=== PATIENT | female | born 1940 | race African-American/Black ===

== ENCOUNTER 2023-03-22 10:52 | Observation (INO) | payer MEDICARE, OTHER ==
[2023-03-22 12:19] LABS: BASO % 0.4 % (0-2.0); EOS % 1.3 % (0-4.5); HEMATOCRIT 39.6 % (32.4-45.2); LYMPH % 19.1 % (8-40); MCH 26.6 pg (25.7-33.7); MCHC 32.8 g/dl (32.0-36.0); MEAN CELL VOLUME 81.1 fl (80-96); MEAN PLT VOLUME 8.4 fl (7.5-11.1); MONO % 7.3 % (3.8-10.2); NEUT % 71.9 % (42.8-82.8); PLATELET COUNT 158 10^3/uL (134-434); RBC 4.88 M/mm3 (3.60-5.2); RDW 14.6 % (11.6-15.6); WHITE BLOOD COUNT 5.5 K/mm3 (4.0-10.0)
[2023-03-22 12:41] LABS: POTASSIUM 4.6 mmol/L (3.5-5.1)
[2023-03-22 12:43] LABS: BLOOD UREA NITROGEN 13.4 mg/dL (7-18); CALCIUM 10.2 mg/dL (8.5-10.1); MAGNESIUM 2.2 mg/dL (1.8-2.4)
[2023-03-22 12:44] LABS: ALBUMIN 3.7 g/dl (3.4-5.0)
[2023-03-22 12:48] LABS: BILIRUBIN,TOTAL 0.7 mg/dL (0.2-1); TOT PROT 7.3 g/dl (6.4-8.2)
[2023-03-22 14:46] LABS: INR 1.12 (0.83-1.09)
[2023-03-22 14:49] LABS: ACTIVATED PTT 26.2 SECONDS (25.2-36.5)
[2023-03-23] MEDS ORDERED: ACETAMINOPHEN 325 MG TABLET (FP) ONE (10:37)
[2023-03-23] MEDS: ACETAMINOPHEN 325 MG TABLET (FP) PO PRN (10:41)
[2023-03-23 17:19] VITALS: BMI 28.3
[2023-03-24] MEDS: ACETAMINOPHEN 325 MG TABLET (FP) PO PRN (01:00)
[2023-03-24] MEDS: POLYETHYLENE GLYCOL (HEALTHYLAX) 3350 17 GM PACKET PO SCH (14:36)
[2023-03-25] MEDS: ACETAMINOPHEN 325 MG TABLET (FP) PO PRN (09:50)
[2023-03-25] MEDS: POLYETHYLENE GLYCOL (HEALTHYLAX) 3350 17 GM PACKET PO SCH (09:51)
[2023-03-25] MEDS ORDERED: CHOLECALCIFEROL (VIT D3) 1,000 UNIT (25 MCG) TABLET PO SCH (14:00)
[2023-03-25] MEDS ORDERED: CALCIUM 500MG/VIT-D 200 UNITS COMBO TABLET (FP) PO SCH (14:00)
[2023-03-25 18:20] VITALS: BP 115/74; PULSE 57; RESP 18; TEMP 97.9
== END 2023-03-25 20:40 ==
LOC: JER 10:52 → UNDOADMOB 14:47 → JERBED 14:47 → OBSVTOIN 14:49 → INTOOBSV 14:49 → JERBED 03-23 13:53 → J4W 03-23 13:56 → JERBED 03-23 13:56 → J4W 03-24 14:17
PROVIDERS: ADMIT Internal Medicine; ATTEND Internal Medicine
DX: S06.37AA Contusion, laceration, and hemorrhage of cerebellum with loss of consciousness status unknown, initial encounter (principal); W18.39XA Other fall on same level, initial encounter; Y93.89 Activity, other specified; Y92.009 Unspecified place in unspecified non-institutional (private) residence as the place of occurrence of the external cause; R26.81 Unsteadiness on feet; M62.81 Muscle weakness (generalized); Z29.8 Encounter for other specified prophylactic measures; Z88.8 Allergy status to other drugs, medicaments and biological substances; M19.90 Unspecified osteoarthritis, unspecified site; Z87.891 Personal history of nicotine dependence
CPT/HCPCS: 0241U-QW; 36415; 70450-TC; 70551-TC; 71045-TC-FY; 72125-TC; 72131-TC; 72141-TC; 72170-TC-FY; 80053; 83735; 84484; 85025; 85610; 85730; 86850; 86900; 86901; 93005; 93010; 97116-GP; 97162-GP; 99285-25; G0378

== ENCOUNTER 2023-07-29 12:55 | Inpatient (IN) | payer OTHER ==
[2023-07-29 15:09] LABS: BASO % 0.2 % (0-2.0); EOS % 0.3 % (0-4.5); HEMATOCRIT 39.6 % (32.4-45.2); HEMOGLOBIN 12.9 GM/dL (10.7-15.3); LYMPH % 9.9 % (8-40); MCH 25.2 pg (25.7-33.7); MCHC 32.6 g/dl (32.0-36.0); MEAN CELL VOLUME 77.2 fl (80-96); MEAN PLT VOLUME 7.2 fl (7.5-11.1); MONO % 9.2 % (3.8-10.2); NEUT % 80.4 % (42.8-82.8); PLATELET COUNT 378 10^3/uL (134-434); RBC 5.13 M/mm3 (3.60-5.2); RDW 14.8 % (11.6-15.6); WHITE BLOOD COUNT 10.2 K/mm3 (4.0-10.0)
[2023-07-29 15:15] LABS: INR 1.21 (0.83-1.09)
[2023-07-29 15:17] LABS: ACTIVATED PTT 25.4 SECONDS (25.2-36.5)
[2023-07-29 15:26] LABS: CHLORIDE 97 mmol/L (98-107); SODIUM 130 mmol/L (136-145)
[2023-07-29 15:29] LABS: BLOOD UREA NITROGEN 79.5 mg/dL (7-18); CO2 25 mmol/L (21-32); GLUCOSE,RANDOM 143 mg/dL (74-106)
[2023-07-29 15:32] LABS: CREATININE 2.2 mg/dL (0.55-1.3); SGOT/AST 59 U/L (15-37); SGPT/ALT 42 U/L (13-61)
[2023-07-29 15:33] LABS: BILIRUBIN,TOTAL 0.4 mg/dL (0.2-1)
[2023-07-29] MEDS ORDERED: SODIUM CHLORIDE 0.9% 500 ML INFUS.BAG IV ONE ×2 (15:33→15:34)
[2023-07-29 15:34] LABS: LACTIC ACID 3.1 mmol/L (0.4-2.0); TOT PROT 9.1 g/dl (6.4-8.2)
[2023-07-29 15:35] LABS: ALK PHOS 123 U/L (45-117)
[2023-07-29] MEDS ORDERED: CEFTRIAXONE 1,000 MG in DEXTROSE 5%-WATER - 50 ML IVPB ONE (15:47)
[2023-07-29 15:51] LABS: ANION GAP 8 mmol/L (4-13); CALCIUM 14.3 mg/dL (8.5-10.1); POTASSIUM 6.2 mmol/L (3.5-5.1)
[2023-07-29] MEDS ORDERED: FUROSEMIDE 40 MG/4 ML INJECTABLE VIAL IVPUSH ONE (15:54)
[2023-07-29] MEDS ORDERED: INSULIN REGULAR HUMAN 100 UNITS/ML *VIAL IVPUSH ONE (15:55)
[2023-07-29] MEDS ORDERED: ALBUTEROL SO4 2.5/IPRATROPIUM 0.5 INH SOL 3 ML VIAL.NEB. NEB ONE ×2 (15:56→16:13)
[2023-07-29] MEDS ORDERED: DEXTROSE 50%-WATER - 25 GM/50 ML VIAL IVPUSH ONE (15:56)
[2023-07-29] MEDS ORDERED: DEXTROSE 50%-WATER 25 GM/50 ML DISP.SYRIN ONE (16:13)
[2023-07-29] MEDS ORDERED: CEFTRIAXONE 1 GM/50 ML BAG ONE (16:13)
[2023-07-29] MEDS ORDERED: FUROSEMIDE 40 MG/4 ML INJECTABLE VIAL ONE (16:13)
[2023-07-29 17:50] LABS: CHLORIDE 96 mmol/L (98-107); POTASSIUM 5.3 mmol/L (3.5-5.1); SODIUM 126 mmol/L (136-145)
[2023-07-29 17:54] LABS: ALBUMIN 2.5 g/dl (3.4-5.0); ANION GAP 7 mmol/L (4-13); BLOOD UREA NITROGEN 76.6 mg/dL (7-18); CO2 23 mmol/L (21-32); GLUCOSE,RANDOM 262 mg/dL (74-106)
[2023-07-29 17:57] LABS: CREATININE 2.2 mg/dL (0.55-1.3); SGOT/AST 48 U/L (15-37); SGPT/ALT 38 U/L (13-61)
[2023-07-29 17:59] LABS: BILIRUBIN,TOTAL 0.4 mg/dL (0.2-1); LACTIC ACID 3.7 mmol/L (0.4-2.0)
[2023-07-29 18:00] LABS: ALK PHOS 111 U/L (45-117); CALCIUM 14.1 mg/dL (8.5-10.1)
[2023-07-29] MEDS ORDERED: SODIUM ZIRCONIUM CYCLOSILICATE (LOKELMA) 5 GM PACKET PO ONE (21:31)
[2023-07-30] MEDS ORDERED: ACETAMINOPHEN 325 MG TABLET (FP) PO PRN (13:50)
[2023-07-30] MEDS ORDERED: SODIUM CHLORIDE 1,000 ML IV SCH (14:00)
[2023-07-30] MEDS: CEFTRIAXONE 1 GM in DEXTROSE 5%-WATER - 50 ML IVPB SCH (14:06)
[2023-07-30] MEDS ORDERED: COLLAGENASE CLOSTRIDIUM HIST. 30 GRAMS TUBE TP SCH (15:00)
[2023-07-30] MEDS: SODIUM CHLORIDE 1,000 ML IV SCH (16:45)
[2023-07-30] MEDS ORDERED: ZOLEDRONIC ACID 4 MG in SODIUM CHLORIDE 100 ML IVPB ONE (17:00)
[2023-07-30 20:04] LABS: BASO % 0.1 % (0-2.0); EOS % 0.3 % (0-4.5); HEMATOCRIT 33.5 % (32.4-45.2); HEMOGLOBIN 10.7 GM/dL (10.7-15.3); LYMPH % 7.8 % (8-40); MCH 24.9 pg (25.7-33.7); MCHC 32.1 g/dl (32.0-36.0); MEAN CELL VOLUME 77.6 fl (80-96); MEAN PLT VOLUME 7.2 fl (7.5-11.1); MONO % 10.6 % (3.8-10.2); NEUT % 81.2 % (42.8-82.8); PLATELET COUNT 283 10^3/uL (134-434); RBC 4.31 M/mm3 (3.60-5.2); RDW 14.8 % (11.6-15.6); WHITE BLOOD COUNT 11.2 K/mm3 (4.0-10.0)
[2023-07-30 20:18] LABS: POTASSIUM 5.2 mmol/L (3.5-5.1)
[2023-07-30 20:20] LABS: CALCIUM 13.3 mg/dL (8.5-10.1)
[2023-07-30 20:21] LABS: ALBUMIN 2.3 g/dl (3.4-5.0); BLOOD UREA NITROGEN 61.4 mg/dL (7-18)
[2023-07-30 20:24] LABS: CREATININE 1.6 mg/dL (0.55-1.3)
[2023-07-30 20:26] LABS: BILIRUBIN,TOTAL 0.3 mg/dL (0.2-1); TOT PROT 7.2 g/dl (6.4-8.2)
[2023-07-30 20:40] LABS: LACTIC ACID 3.1 mmol/L (0.4-2.0)
[2023-07-30] MEDS: BACITRACIN ZINC 15 GM TUBE TOPICAL OINTMENT TP SCH (23:11)
[2023-07-31] MEDS: SODIUM CHLORIDE 1,000 ML IV SCH ×3 (04:12→15:35)
[2023-07-31 09:37] LABS: BASO % 0.1 % (0-2.0); EOS % 0.3 % (0-4.5); HEMATOCRIT 32.3 % (32.4-45.2); HEMOGLOBIN 10.6 GM/dL (10.7-15.3); LYMPH % 9.2 % (8-40); MEAN CELL VOLUME 78.6 fl (80-96); MEAN PLT VOLUME 7.8 fl (7.5-11.1); MONO % 8.9 % (3.8-10.2); NEUT % 81.5 % (42.8-82.8); PLATELET COUNT 253 10^3/uL (134-434); RDW 14.6 % (11.6-15.6); WHITE BLOOD COUNT 9.4 K/mm3 (4.0-10.0)
[2023-07-31] MEDS: AMINO ACIDS/PROTEIN HYDROLYS 30 ML LIQUID.PKT PO SCH ×3 (09:40→17:08)
[2023-07-31] MEDS: BACITRACIN ZINC 15 GM TUBE TOPICAL OINTMENT TP SCH (09:40)
[2023-07-31] MEDS: CEFTRIAXONE 1 GM in DEXTROSE 5%-WATER - 50 ML IVPB SCH (09:42)
[2023-07-31] MEDS: POLYETHYLENE GLYCOL (HEALTHYLAX) 3350 17 GM PACKET PO SCH (09:43)
[2023-07-31] MEDS: ZINC SULFATE 220 MG CAPSULE (FP) PO SCH (09:43)
[2023-07-31] MEDS: VITAMIN B COMP W-C 1 EA TABLET (NEPHRO-VITE) PO SCH (09:43)
[2023-07-31 09:47] LABS: POTASSIUM 4.9 mmol/L (3.5-5.1)
[2023-07-31 09:54] LABS: CALCIUM 12.8 mg/dL (8.5-10.1)
[2023-07-31 09:55] LABS: ALBUMIN 2.4 g/dl (3.4-5.0); BLOOD UREA NITROGEN 52.8 mg/dL (7-18)
[2023-07-31 09:58] LABS: CREATININE 1.3 mg/dL (0.55-1.3)
[2023-07-31 09:59] LABS: BILIRUBIN,TOTAL 0.4 mg/dL (0.2-1); TOT PROT 7.2 g/dl (6.4-8.2)
[2023-07-31] MEDS ORDERED: COLLAGENASE CLOSTRIDIUM HIST. 30 GRAMS TUBE TP SCH (10:00)
[2023-07-31 11:21] LABS: URINE COLOR RED; URINE GLUCOSE (UA) NEGATIVE (NEGATIVE)
[2023-07-31 11:22] LABS: URINE BILIRUBIN NEGATIVE (NEGATIVE); URINE KETONE NEGATIVE (NEGATIVE); URINE LEUK ESTERASE 3+ (NEGATIVE); URINE NITRITE NEGATIVE (NEGATIVE); URINE PROTEIN 4+ (NEGATIVE); URINE UROBILINOGEN 0.2 mg/dL (0.2-1.0)
[2023-07-31 11:23] LABS: URINE RBC MANY /uL (0-23.9); URINE WBC MODERATE /uL (0-25.8)
[2023-07-31 11:24] LABS: URINE BACTERIA NO SEEN /uL (0-1359)
[2023-07-31 11:25] LABS: EPI CELLS OCCASIONAL /uL (0-25.1)
[2023-07-31 11:28] LABS: URINE APPEARANCE BLOODY
[2023-08-01] MEDS: SODIUM CHLORIDE 1,000 ML IV SCH ×2 (05:49→14:18)
[2023-08-01] MEDS: CEFTRIAXONE 1 GM in DEXTROSE 5%-WATER - 50 ML IVPB SCH (09:34)
[2023-08-01] MEDS: AMINO ACIDS/PROTEIN HYDROLYS 30 ML LIQUID.PKT PO SCH ×3 (09:34→17:38)
[2023-08-01] MEDS: VITAMIN B COMP W-C 1 EA TABLET (NEPHRO-VITE) PO SCH (09:34)
[2023-08-01] MEDS: POLYETHYLENE GLYCOL (HEALTHYLAX) 3350 17 GM PACKET PO SCH (09:34)
[2023-08-01] MEDS: ZINC SULFATE 220 MG CAPSULE (FP) PO SCH (09:34)
[2023-08-02] MEDS: SODIUM CHLORIDE 1,000 ML IV SCH ×3 (09:03→17:51)
[2023-08-02] MEDS: CEFTRIAXONE 1 GM in DEXTROSE 5%-WATER - 50 ML IVPB SCH (09:03)
[2023-08-02] MEDS: AMINO ACIDS/PROTEIN HYDROLYS 30 ML LIQUID.PKT PO SCH ×3 (09:03→17:51)
[2023-08-02] MEDS: POLYETHYLENE GLYCOL (HEALTHYLAX) 3350 17 GM PACKET PO SCH (09:04)
[2023-08-02] MEDS: ZINC SULFATE 220 MG CAPSULE (FP) PO SCH (09:04)
[2023-08-02] MEDS: VITAMIN B COMP W-C 1 EA TABLET (NEPHRO-VITE) PO SCH (09:04)
[2023-08-02] MEDS: CALCITONIN - SALMON SYNTHETIC 400 UNIT/2 ML VIAL SQ SCH (23:56)
[2023-08-03 09:28] LABS: HEMATOCRIT 25.2 % (32.4-45.2); HEMOGLOBIN 8.1 GM/dL (10.7-15.3); MEAN CELL VOLUME 78.1 fl (80-96); MEAN PLT VOLUME 7.6 fl (7.5-11.1); PLATELET COUNT 152 10^3/uL (134-434); RBC 3.23 M/mm3 (3.60-5.2); RDW 14.5 % (11.6-15.6); WHITE BLOOD COUNT 11.9 K/mm3 (4.0-10.0)
[2023-08-03] MEDS: CEFTRIAXONE 1 GM in DEXTROSE 5%-WATER - 50 ML IVPB SCH (09:29)
[2023-08-03] MEDS: AMINO ACIDS/PROTEIN HYDROLYS 30 ML LIQUID.PKT PO SCH ×3 (09:29→17:37)
[2023-08-03] MEDS: VITAMIN B COMP W-C 1 EA TABLET (NEPHRO-VITE) PO SCH (09:29)
[2023-08-03] MEDS: POLYETHYLENE GLYCOL (HEALTHYLAX) 3350 17 GM PACKET PO SCH (09:29)
[2023-08-03] MEDS: ZINC SULFATE 220 MG CAPSULE (FP) PO SCH (09:30)
[2023-08-03 09:31] LABS: INR 1.26 (0.83-1.09); PROTHROMBIN TIME (PATIENT) 14.6 SEC (9.7-13.0)
[2023-08-03 09:43] LABS: POTASSIUM 3.7 mmol/L (3.5-5.1)
[2023-08-03 09:49] LABS: CREATININE 0.5 mg/dL (0.55-1.3)
[2023-08-03 09:51] LABS: BILIRUBIN,TOTAL 0.2 mg/dL (0.2-1)
[2023-08-03 10:27] LABS: ALBUMIN 1.7 g/dl (3.4-5.0); BLOOD UREA NITROGEN 19.4 mg/dL (7-18); CALCIUM 8.6 mg/dL (8.5-10.1); TOT PROT 5.1 g/dl (6.4-8.2)
[2023-08-03] MEDS ORDERED: PROPOFOL 20 ML ONE (11:14)
[2023-08-03] MEDS ORDERED: ROCURONIUM BROMIDE 50 MG/5 ML SYRINGE ONE (11:15)
[2023-08-03] MEDS ORDERED: ONDANSETRON 4 MG/2 ML VIAL ONE (11:24)
[2023-08-03 12:18] LABS: ANISOCYTOSIS 0; HELMET CELLS 0; HOWELL-JOLLY BODIES 0; MACROCYTOSIS 0; OVALOCYTE 0; ROULEAU 0; SICKELED CELLS 0; TARGET CELLS 0; TEAR DROP CELLS 0; TOXIC GRANULATION 0
[2023-08-03] MEDS ORDERED: ACETAMINOPHEN 325 MG TABLET (FP) PO PRN (12:45)
[2023-08-03] MEDS ORDERED: PROMETHAZINE HCL 25 MG/1 ML VIAL IVPB PRN (12:51)
[2023-08-03] MEDS ORDERED: LACTATED RINGERS SOLUTION 1,000 ML IV SCH (13:00)
[2023-08-03] MEDS: SODIUM CHLORIDE 1,000 ML IV SCH ×3 (13:30→20:43)
[2023-08-03] MEDS: CALCITONIN - SALMON SYNTHETIC 400 UNIT/2 ML VIAL SQ SCH (14:50)
[2023-08-03 15:56] VITALS: BMI 21.2
[2023-08-04] MEDS: SODIUM CHLORIDE 1,000 ML IV SCH (04:21)
[2023-08-04 09:40] LABS: HEMATOCRIT 23.3 % (32.4-45.2); HEMOGLOBIN 7.2 GM/dL (10.7-15.3); MCH 24.3 pg (25.7-33.7); MEAN CELL VOLUME 78.3 fl (80-96); MEAN PLT VOLUME 7.7 fl (7.5-11.1); PLATELET COUNT 148 10^3/uL (134-434); RBC 2.98 M/mm3 (3.60-5.2); RDW 14.9 % (11.6-15.6); WHITE BLOOD COUNT 11.3 K/mm3 (4.0-10.0)
[2023-08-04] MEDS: CEFTRIAXONE 1 GM in DEXTROSE 5%-WATER - 50 ML IVPB SCH (10:00)
[2023-08-04] MEDS: AMINO ACIDS/PROTEIN HYDROLYS 30 ML LIQUID.PKT PO SCH ×3 (10:00→17:43)
[2023-08-04] MEDS: POLYETHYLENE GLYCOL (HEALTHYLAX) 3350 17 GM PACKET PO SCH (10:00)
[2023-08-04] MEDS: ZINC SULFATE 220 MG CAPSULE (FP) PO SCH (10:00)
[2023-08-04] MEDS: VITAMIN B COMP W-C 1 EA TABLET (NEPHRO-VITE) PO SCH (10:00)
[2023-08-04 10:02] LABS: POTASSIUM 3.3 mmol/L (3.5-5.1)
[2023-08-04 10:12] LABS: CALCIUM 7.9 mg/dL (8.5-10.1)
[2023-08-04 10:13] LABS: ALBUMIN 1.5 g/dl (3.4-5.0); BLOOD UREA NITROGEN 11.3 mg/dL (7-18)
[2023-08-04 10:16] LABS: CREATININE 0.4 mg/dL (0.55-1.3)
[2023-08-04 10:17] LABS: BILIRUBIN,TOTAL 0.3 mg/dL (0.2-1)
[2023-08-04 10:18] LABS: TOT PROT 4.8 g/dl (6.4-8.2)
[2023-08-04 10:37] LABS: ANISOCYTOSIS 0; MACROCYTOSIS 0
[2023-08-04] MEDS ORDERED: POTASSIUM CHLORIDE ORAL LIQUID 20 MEQ/15 ML PO ONE (15:46)
[2023-08-04] MEDS ORDERED: SODIUM CHLORIDE 1,000 ML IV SCH (15:46)
[2023-08-04] MEDS ORDERED: FUROSEMIDE 40 MG/4 ML INJECTABLE VIAL IVPUSH ONE (23:30)
[2023-08-05] MEDS: CEFTRIAXONE 1 GM in DEXTROSE 5%-WATER - 50 ML IVPB SCH (09:22)
[2023-08-05] MEDS: POLYETHYLENE GLYCOL (HEALTHYLAX) 3350 17 GM PACKET PO SCH (09:22)
[2023-08-05] MEDS: AMINO ACIDS/PROTEIN HYDROLYS 30 ML LIQUID.PKT PO SCH ×3 (09:22→17:21)
[2023-08-05] MEDS: ZINC SULFATE 220 MG CAPSULE (FP) PO SCH (09:23)
[2023-08-05] MEDS: VITAMIN B COMP W-C 1 EA TABLET (NEPHRO-VITE) PO SCH (09:23)
[2023-08-05 10:08] LABS: HEMATOCRIT 30.6 % (32.4-45.2); HEMOGLOBIN 9.9 GM/dL (10.7-15.3); MCH 25.1 pg (25.7-33.7); MCHC 32.2 g/dl (32.0-36.0); MEAN CELL VOLUME 77.9 fl (80-96); MEAN PLT VOLUME 7.1 fl (7.5-11.1); PLATELET COUNT 167 10^3/uL (134-434); RBC 3.92 M/mm3 (3.60-5.2); RDW 14.8 % (11.6-15.6); WHITE BLOOD COUNT 12.2 K/mm3 (4.0-10.0)
[2023-08-05 10:32] LABS: POTASSIUM 3.4 mmol/L (3.5-5.1)
[2023-08-05 10:45] LABS: ALBUMIN 1.6 g/dl (3.4-5.0); CALCIUM 7.5 mg/dL (8.5-10.1)
[2023-08-05 10:46] LABS: BLOOD UREA NITROGEN 8.3 mg/dL (7-18)
[2023-08-05 10:49] LABS: CREATININE 0.4 mg/dL (0.55-1.3)
[2023-08-05 10:50] LABS: BILIRUBIN,TOTAL 0.4 mg/dL (0.2-1)
[2023-08-05 10:52] LABS: ANISOCYTOSIS 0; MACROCYTOSIS 0
[2023-08-05] MEDS ORDERED: POTASSIUM CHLORIDE TABS 10 MEQ TABLET.ER (FP) PO ONE (11:15)
[2023-08-05] MEDS ORDERED: INSULIN (NOVOLOG) ASPART 100 UNITS/ML 10ML VIAL ONE (19:46)
[2023-08-06] MEDS: POLYETHYLENE GLYCOL (HEALTHYLAX) 3350 17 GM PACKET PO SCH (09:24)
[2023-08-06] MEDS: AMINO ACIDS/PROTEIN HYDROLYS 30 ML LIQUID.PKT PO SCH ×3 (09:24→17:10)
[2023-08-06] MEDS: ZINC SULFATE 220 MG CAPSULE (FP) PO SCH (09:25)
[2023-08-06] MEDS: VITAMIN B COMP W-C 1 EA TABLET (NEPHRO-VITE) PO SCH (09:25)
[2023-08-06] MEDS: CEFTRIAXONE 1 GM in DEXTROSE 5%-WATER - 50 ML IVPB SCH (09:25)
[2023-08-06 09:44] LABS: BASO % 0.3 % (0-2.0); EOS % 0.8 % (0-4.5); HEMATOCRIT 29.3 % (32.4-45.2); HEMOGLOBIN 9.5 GM/dL (10.7-15.3); LYMPH % 13.2 % (8-40); MCH 25.2 pg (25.7-33.7); MCHC 32.5 g/dl (32.0-36.0); MEAN CELL VOLUME 77.4 fl (80-96); MEAN PLT VOLUME 7.5 fl (7.5-11.1); MONO % 4.9 % (3.8-10.2); NEUT % 80.8 % (42.8-82.8); PLATELET COUNT 188 10^3/uL (134-434); RBC 3.79 M/mm3 (3.60-5.2); RDW 15.2 % (11.6-15.6); WHITE BLOOD COUNT 11.4 K/mm3 (4.0-10.0)
[2023-08-06 10:04] LABS: POTASSIUM 3.3 mmol/L (3.5-5.1)
[2023-08-06 10:10] LABS: BLOOD UREA NITROGEN 12.3 mg/dL (7-18); CALCIUM 7.4 mg/dL (8.5-10.1)
[2023-08-06 10:11] LABS: ALBUMIN 1.6 g/dl (3.4-5.0); CREATININE 0.5 mg/dL (0.55-1.3)
[2023-08-06 10:12] LABS: BILIRUBIN,TOTAL 0.6 mg/dL (0.2-1)
[2023-08-06] MEDS ORDERED: POTASSIUM CHLORIDE ORAL LIQUID 20 MEQ/15 ML PO ONE (13:43)
[2023-08-06 16:30] VITALS: RESP 18
[2023-08-07] MEDS: AMINO ACIDS/PROTEIN HYDROLYS 30 ML LIQUID.PKT PO SCH ×3 (09:32→17:30)
[2023-08-07] MEDS: POLYETHYLENE GLYCOL (HEALTHYLAX) 3350 17 GM PACKET PO SCH (09:32)
[2023-08-07] MEDS: VITAMIN B COMP W-C 1 EA TABLET (NEPHRO-VITE) PO SCH (09:32)
[2023-08-07] MEDS: CEFTRIAXONE 1 GM in DEXTROSE 5%-WATER - 50 ML IVPB SCH (09:32)
[2023-08-07] MEDS: ZINC SULFATE 220 MG CAPSULE (FP) PO SCH (09:32)
[2023-08-07 09:55] LABS: POTASSIUM 3.6 mmol/L (3.5-5.1)
[2023-08-07 09:56] LABS: BASO % 0.5 % (0-2.0); EOS % 1.5 % (0-4.5); HEMATOCRIT 27.2 % (32.4-45.2); HEMOGLOBIN 9.3 GM/dL (10.7-15.3); LYMPH % 14.6 % (8-40); MCH 26.1 pg (25.7-33.7); MCHC 34.2 g/dl (32.0-36.0); MEAN CELL VOLUME 76.5 fl (80-96); MEAN PLT VOLUME 8.1 fl (7.5-11.1); MONO % 6.1 % (3.8-10.2); NEUT % 77.3 % (42.8-82.8); PLATELET COUNT 195 10^3/uL (134-434); RBC 3.55 M/mm3 (3.60-5.2); RDW 15.2 % (11.6-15.6); WHITE BLOOD COUNT 9.9 K/mm3 (4.0-10.0)
[2023-08-07 09:57] LABS: CALCIUM 7.2 mg/dL (8.5-10.1)
[2023-08-07 09:58] LABS: ALBUMIN 1.5 g/dl (3.4-5.0); BLOOD UREA NITROGEN 11.7 mg/dL (7-18); MAGNESIUM 1.6 mg/dL (1.8-2.4)
[2023-08-07 10:01] LABS: CREATININE 0.4 mg/dL (0.55-1.3)
[2023-08-07 10:03] LABS: BILIRUBIN,TOTAL 0.5 mg/dL (0.2-1); TOT PROT 4.8 g/dl (6.4-8.2)
[2023-08-07] MEDS ORDERED: MAGNESIUM SULF 50% (8.12 MEQ/2 ML-1 GM VIAL) IVPB ONE (15:30)
[2023-08-08] MEDS: POLYETHYLENE GLYCOL (HEALTHYLAX) 3350 17 GM PACKET PO SCH (09:09)
[2023-08-08] MEDS: AMINO ACIDS/PROTEIN HYDROLYS 30 ML LIQUID.PKT PO SCH ×2 (09:10→14:17)
[2023-08-08] MEDS: VITAMIN B COMP W-C 1 EA TABLET (NEPHRO-VITE) PO SCH (09:10)
[2023-08-08] MEDS: CEFTRIAXONE 1 GM in DEXTROSE 5%-WATER - 50 ML IVPB SCH (09:10)
[2023-08-08] MEDS: ZINC SULFATE 220 MG CAPSULE (FP) PO SCH (09:10)
[2023-08-08 14:02] VITALS: BP 112/89; PULSE 69; TEMP 97.7
== END 2023-08-08 18:03 | disposition home health service (06) | DRG 689 ==
LOC: JER 12:55 → JERBED 18:40 → J8W 07-30 10:14
PROVIDERS: ADMIT Internal Medicine; ATTEND Internal Medicine
PROC: 0TCB8ZZ Extirpation of Matter from Bladder, Via Natural or Artificial Opening Endoscopic (ICD-10-PCS; principal; 2023-08-03 11:00)
DX: N30.81 Other cystitis with hematuria (principal); L89.153 Pressure ulcer of sacral region, stage 3; E87.20 Acidosis, unspecified; N17.9 Acute kidney failure, unspecified; N13.30 Unspecified hydronephrosis; L89.892 Pressure ulcer of other site, stage 2; E83.52 Hypercalcemia; E87.5 Hyperkalemia; M54.12 Radiculopathy, cervical region; I10 Essential (primary) hypertension; N31.9 Neuromuscular dysfunction of bladder, unspecified; R26.81 Unsteadiness on feet; E86.0 Dehydration
CPT/HCPCS: 0241U-QW; 36415; 36430; 70450-TC; 71045-TC-FY; 74176-TC; 76856-TC; 80053; 81003; 82272; 82306; 82607; 82728; 82962; 83540; 83605; 83735; 83970; 84155; 84165; 84443; 85025; 85610; 85730; 86850; 86900; 86901; 86922; 87040; 87086; 93005; 93010; 93306-TC; 94760; 99285-25; J3489; P9058

== ENCOUNTER 2023-10-26 21:07 | Inpatient (IN) | payer OTHER ==
[2023-10-26 21:53] LABS: BASO % 0.4 % (0-2.0); EOS % 0.9 % (0-4.5); HEMATOCRIT 24.8 % (32.4-45.2); HEMOGLOBIN 7.8 GM/dL (10.7-15.3); LYMPH % 16.8 % (8-40); MCH 24.4 pg (25.7-33.7); MCHC 31.3 g/dl (32.0-36.0); MEAN CELL VOLUME 77.9 fl (80-96); MEAN PLT VOLUME 6.6 fl (7.5-11.1); MONO % 7.4 % (3.8-10.2); NEUT % 74.5 % (42.8-82.8); PLATELET COUNT 453 10^3/uL (134-434); RBC 3.19 M/mm3 (3.60-5.2); RDW 16.4 % (11.6-15.6); WHITE BLOOD COUNT 11.1 K/mm3 (4.0-10.0)
[2023-10-26 21:54] LABS: VENOUS BASE EXCESS 1.7 mmol/L (-2-2); VENOUS O2 SATURATION 20.5 % (70-80); VENOUS PCO2 43.5 mmHg (38-52); VENOUS PH 7.405 (7.310-7.410)
[2023-10-26 21:58] LABS: INR 1.2 (0.83-1.09); PROTHROMBIN TIME (PATIENT) 13.9 SEC (9.7-13.0)
[2023-10-26 22:01] LABS: ACTIVATED PTT 29.1 SECONDS (25.2-36.5)
[2023-10-26 22:20] LABS: CALCIUM 9.4 mg/dL (8.5-10.1)
[2023-10-26 22:21] LABS: ALBUMIN 2.3 g/dl (3.4-5.0); BLOOD UREA NITROGEN 14.1 mg/dL (7-18)
[2023-10-26 22:24] LABS: CREATININE 1.4 mg/dL (0.55-1.3)
[2023-10-26 22:25] LABS: BILIRUBIN,TOTAL 0.3 mg/dL (0.2-1); TOT PROT 7.1 g/dl (6.4-8.2)
[2023-10-26 22:52] LABS: POTASSIUM 3.8 mmol/L (3.5-5.1)
[2023-10-27 08:18] LABS: CHLORIDE 108 mmol/L (98-107); POTASSIUM 3.7 mmol/L (3.5-5.1); SODIUM 140 mmol/L (136-145)
[2023-10-27 08:22] LABS: BASO % 0.4 % (0-2.0); EOS % 1.1 % (0-4.5); HEMATOCRIT 21.7 % (32.4-45.2); LYMPH % 22.1 % (8-40); MCH 24.8 pg (25.7-33.7); MCHC 32.2 g/dl (32.0-36.0); MEAN CELL VOLUME 76.9 fl (80-96); MEAN PLT VOLUME 7.5 fl (7.5-11.1); MONO % 8.3 % (3.8-10.2); NEUT % 68.1 % (42.8-82.8); PLATELET COUNT 407 10^3/uL (134-434); RBC 2.82 M/mm3 (3.60-5.2); RDW 16.4 % (11.6-15.6); WHITE BLOOD COUNT 10.8 K/mm3 (4.0-10.0)
[2023-10-27 08:26] LABS: CALCIUM 8.7 mg/dL (8.5-10.1)
[2023-10-27 08:27] LABS: ANION GAP 6 mmol/L (4-13); CO2 27 mmol/L (21-32); GLUCOSE,RANDOM 81 mg/dL (74-106)
[2023-10-27 08:29] LABS: ALBUMIN 2.1 g/dl (3.4-5.0); BLOOD UREA NITROGEN 12.2 mg/dL (7-18)
[2023-10-27 08:30] LABS: CREATININE 1.1 mg/dL (0.55-1.3); SGOT/AST 12 U/L (15-37)
[2023-10-27 08:31] LABS: BILIRUBIN,TOTAL 0.3 mg/dL (0.2-1); TOT PROT 6.5 g/dl (6.4-8.2)
[2023-10-27 08:35] LABS: ALK PHOS 51 U/L (45-117); SGPT/ALT < 6 U/L (13-61)
[2023-10-27 09:41] LABS: RETICULOCYTES 1.45 % (0.5-1.5)
[2023-10-27] MEDS: COLLAGENASE CLOSTRIDIUM HIST. 30 GRAMS TUBE TP SCH (12:23)
[2023-10-27] MEDS: CHOLECALCIFEROL (VIT D3) 1,000 UNIT (25 MCG) TABLET PO SCH (12:23)
[2023-10-27] MEDS: VITAMIN B COMP W-C 1 EA TABLET (NEPHRO-VITE) PO SCH (12:23)
[2023-10-27 12:58] LABS: EPI CELLS 7 /uL (0-25.1); HYALINE CASTS 1 /uL (0-3.1); PH,URINE 7.5 (5.0-8.0); URINE APPEARANCE TURBID; URINE BACTERIA 541 /uL (0-1359); URINE BILIRUBIN NEGATIVE (NEGATIVE); URINE COLOR YELLOW; URINE GLUCOSE (UA) NEGATIVE (NEGATIVE); URINE KETONE NEGATIVE (NEGATIVE); URINE LEUK ESTERASE 3+ (NEGATIVE); URINE NITRITE NEGATIVE (NEGATIVE); URINE PROTEIN 1+ (NEGATIVE); URINE UROBILINOGEN 0.2 mg/dL (0.2-1.0); URINE WBC 5524 /uL (0-25.8)
[2023-10-27 14:57] LABS: URINE RBC 223.2 /uL (0-23.9)
[2023-10-27 14:58] LABS: YEAST NEGATIVE (NEGATIVE)
[2023-10-27] MEDS: SODIUM CHLORIDE 1,000 ML IV SCH (17:16)
[2023-10-27] MEDS: LACTATED RINGERS SOLUTION 1,000 ML/1,000 ML INFUS.BAG IV SCH (19:15)
[2023-10-27 20:18] LABS: IRON SERUM 20 ug/dL (50-175); TOTAL IRON BINDING CAPACITY 120 ug/dL (250-450)
[2023-10-28 07:30] LABS: BASO % 0.5 % (0-2.0); EOS % 2.2 % (0-4.5); HEMATOCRIT 23.4 % (32.4-45.2); HEMOGLOBIN 7.9 GM/dL (10.7-15.3); LYMPH % 26.3 % (8-40); MCH 26.2 pg (25.7-33.7); MCHC 33.7 g/dl (32.0-36.0); MEAN CELL VOLUME 77.6 fl (80-96); MEAN PLT VOLUME 7.1 fl (7.5-11.1); MONO % 9.3 % (3.8-10.2); NEUT % 61.7 % (42.8-82.8); PLATELET COUNT 345 10^3/uL (134-434); RBC 3.01 M/mm3 (3.60-5.2); RDW 16.2 % (11.6-15.6); WHITE BLOOD COUNT 9.4 K/mm3 (4.0-10.0)
[2023-10-28] MEDS: ACETAMINOPHEN 325 MG TABLET (FP) PO PRN (10:20)
[2023-10-28 12:58] LABS: EPI CELLS >36 /uL (0-25.1); HYALINE CASTS 52 /uL (0-3.1); PH,URINE 7.5 (5.0-8.0); URINE APPEARANCE TURBID; URINE BACTERIA 717 /uL (0-1359); URINE BILIRUBIN NEGATIVE (NEGATIVE); URINE COLOR ORANGE; URINE GLUCOSE (UA) NEGATIVE (NEGATIVE); URINE KETONE NEGATIVE (NEGATIVE); URINE LEUK ESTERASE 3+ (NEGATIVE); URINE NITRITE NEGATIVE (NEGATIVE); URINE PROTEIN 2+ (NEGATIVE); URINE UROBILINOGEN 0.2 mg/dL (0.2-1.0); URINE WBC 10322 /uL (0-25.8)
[2023-10-28 13:12] LABS: URINE RBC 533.7 /uL (0-23.9); YEAST NEGATIVE (NEGATIVE)
[2023-10-28 15:33] VITALS: BMI 22.3
[2023-10-28] MEDS: CEFTRIAXONE 1 GM in DEXTROSE 5%-WATER - 50 ML IVPB SCH (20:48)
[2023-10-29] MEDS: VITAMIN B COMP W-C 1 EA TABLET (NEPHRO-VITE) PO SCH (09:15)
[2023-10-29] MEDS: CHOLECALCIFEROL (VIT D3) 1,000 UNIT (25 MCG) TABLET PO SCH (09:16)
[2023-10-29] MEDS: AMINO ACIDS/PROTEIN HYDROLYS 30 ML LIQUID.PKT PO SCH (09:18)
[2023-10-29] MEDS: ACETAMINOPHEN 325 MG TABLET (FP) PO PRN (09:19)
[2023-10-29 10:23] LABS: BASO % 0.4 % (0-2.0); EOS % 0.7 % (0-4.5); HEMOGLOBIN 8.7 GM/dL (10.7-15.3); LYMPH % 11.9 % (8-40); MCH 25.4 pg (25.7-33.7); MCHC 32.1 g/dl (32.0-36.0); MEAN PLT VOLUME 7.5 fl (7.5-11.1); MONO % 6.6 % (3.8-10.2); NEUT % 80.4 % (42.8-82.8); PLATELET COUNT 386 10^3/uL (134-434); RBC 3.41 M/mm3 (3.60-5.2); RDW 16.9 % (11.6-15.6); WHITE BLOOD COUNT 13.7 K/mm3 (4.0-10.0)
[2023-10-29 10:37] LABS: CHLORIDE 108 mmol/L (98-107); POTASSIUM 3.4 mmol/L (3.5-5.1); SODIUM 139 mmol/L (136-145)
[2023-10-29 10:46] LABS: CALCIUM 8.8 mg/dL (8.5-10.1)
[2023-10-29 10:47] LABS: ANION GAP 6 mmol/L (4-13); BLOOD UREA NITROGEN 11.9 mg/dL (7-18); CO2 25 mmol/L (21-32); GLUCOSE,RANDOM 85 mg/dL (74-106)
[2023-10-29 10:50] LABS: SGOT/AST 11 U/L (15-37)
[2023-10-29 10:52] LABS: BILIRUBIN,TOTAL 0.4 mg/dL (0.2-1); TOT PROT 6.2 g/dl (6.4-8.2)
[2023-10-29 10:53] LABS: ALK PHOS 46 U/L (45-117)
[2023-10-29 10:58] LABS: SGPT/ALT < 6 U/L (13-61)
[2023-10-29] MEDS: COLLAGENASE CLOSTRIDIUM HIST. 30 GRAMS TUBE TP SCH (15:29)
[2023-10-30 09:16] LABS: BASO % 0.4 % (0-2.0); EOS % 0.6 % (0-4.5); HEMATOCRIT 24.9 % (32.4-45.2); HEMOGLOBIN 8.2 GM/dL (10.7-15.3); LYMPH % 12.1 % (8-40); MCH 25.7 pg (25.7-33.7); MEAN CELL VOLUME 77.8 fl (80-96); MEAN PLT VOLUME 7.4 fl (7.5-11.1); MONO % 6.8 % (3.8-10.2); NEUT % 80.1 % (42.8-82.8); PLATELET COUNT 342 10^3/uL (134-434); RDW 17.5 % (11.6-15.6); WHITE BLOOD COUNT 14.5 K/mm3 (4.0-10.0)
[2023-10-30 09:48] LABS: POTASSIUM 3.3 mmol/L (3.5-5.1)
[2023-10-30 10:01] LABS: BLOOD UREA NITROGEN 15.3 mg/dL (7-18); CALCIUM 8.4 mg/dL (8.5-10.1)
[2023-10-30 10:03] LABS: CREATININE 1.1 mg/dL (0.55-1.3)
[2023-10-30] MEDS: TAMSULOSIN HCL 0.4 MG CAP PO SCH (10:18)
[2023-10-30] MEDS: POTASSIUM CHLORIDE ORAL LIQUID 20 MEQ/15 ML PO ONE (14:46)
[2023-10-30 14:54] VITALS: RESP 18
[2023-10-31 08:44] LABS: BASO % 0.3 % (0-2.0); EOS % 1.4 % (0-4.5); HEMATOCRIT 24.3 % (32.4-45.2); HEMOGLOBIN 7.8 GM/dL (10.7-15.3); LYMPH % 23.7 % (8-40); MCH 25.5 pg (25.7-33.7); MCHC 32.2 g/dl (32.0-36.0); MEAN CELL VOLUME 79.3 fl (80-96); MEAN PLT VOLUME 7.3 fl (7.5-11.1); MONO % 9.2 % (3.8-10.2); NEUT % 65.4 % (42.8-82.8); PLATELET COUNT 330 10^3/uL (134-434); RBC 3.07 M/mm3 (3.60-5.2); RDW 17.5 % (11.6-15.6); WHITE BLOOD COUNT 11.8 K/mm3 (4.0-10.0)
[2023-10-31 09:13] LABS: POTASSIUM 3.5 mmol/L (3.5-5.1)
[2023-10-31 09:16] LABS: CALCIUM 8.4 mg/dL (8.5-10.1)
[2023-10-31 09:17] LABS: BLOOD UREA NITROGEN 16.5 mg/dL (7-18)
[2023-11-01 08:04] LABS: BASO % 0.8 % (0-2.0); EOS % 2.7 % (0-4.5); HEMATOCRIT 23.8 % (32.4-45.2); LYMPH % 21.6 % (8-40); MCH 26.5 pg (25.7-33.7); MCHC 33.7 g/dl (32.0-36.0); MEAN CELL VOLUME 78.7 fl (80-96); MEAN PLT VOLUME 7.4 fl (7.5-11.1); MONO % 11.3 % (3.8-10.2); NEUT % 63.6 % (42.8-82.8); PLATELET COUNT 336 10^3/uL (134-434); RBC 3.02 M/mm3 (3.60-5.2); RDW 17.6 % (11.6-15.6)
[2023-11-01 08:46] LABS: BASO % 0.4 % (0-2.0); EOS % 2.3 % (0-4.5); HEMATOCRIT 25.3 % (32.4-45.2); HEMOGLOBIN 8.3 GM/dL (10.7-15.3); LYMPH % 24.3 % (8-40); MCH 25.9 pg (25.7-33.7); MCHC 32.9 g/dl (32.0-36.0); MEAN CELL VOLUME 78.6 fl (80-96); MEAN PLT VOLUME 6.9 fl (7.5-11.1); MONO % 8.5 % (3.8-10.2); NEUT % 64.5 % (42.8-82.8); PLATELET COUNT 345 10^3/uL (134-434); RBC 3.21 M/mm3 (3.60-5.2); RDW 17.3 % (11.6-15.6)
[2023-11-01 09:02] LABS: POTASSIUM 3.6 mmol/L (3.5-5.1)
[2023-11-01 09:04] LABS: CALCIUM 8.9 mg/dL (8.5-10.1)
[2023-11-01 09:05] LABS: ALBUMIN 1.9 g/dl (3.4-5.0); BLOOD UREA NITROGEN 11.8 mg/dL (7-18)
[2023-11-01 09:08] LABS: CREATININE 0.9 mg/dL (0.55-1.3)
[2023-11-01 09:10] LABS: BILIRUBIN,TOTAL 0.3 mg/dL (0.2-1); TOT PROT 5.9 g/dl (6.4-8.2)
[2023-11-01] MEDS: TAMSULOSIN HCL 0.4 MG CAP PO SCH (21:29)
[2023-11-02 14:42] VITALS: BP 119/85; TEMP 98.2
[2023-11-02 14:49] VITALS: PULSE 72
== END 2023-11-02 16:07 | disposition home health service (06) | DRG 811 ==
LOC: JER 21:07 → JERBED 10-27 00:15 → OBSVTOIN 10-27 01:54 → J4W 10-27 03:47 → J8W 10-28 14:00
PROVIDERS: ADMIT Internal Medicine; ATTEND Nurse Practitioner Family
PROC: 30233N1 Transfusion of Nonautologous Red Blood Cells into Peripheral Vein, Percutaneous Approach (ICD-10-PCS; principal; 2023-10-27)
DX: D50.9 Iron deficiency anemia, unspecified (principal); L89.313 Pressure ulcer of right buttock, stage 3; N13.30 Unspecified hydronephrosis; N17.9 Acute kidney failure, unspecified; N30.91 Cystitis, unspecified with hematuria; I10 Essential (primary) hypertension; R33.9 Retention of urine, unspecified; M54.12 Radiculopathy, cervical region; D72.829 Elevated white blood cell count, unspecified; E87.5 Hyperkalemia; E83.52 Hypercalcemia; N31.9 Neuromuscular dysfunction of bladder, unspecified; Z86.73 Personal history of transient ischemic attack (TIA), and cerebral infarction without residual deficits
CPT/HCPCS: 36415; 36430; 71045-TC-FY; 76775-TC; 76856-TC; 80048; 80053; 81003; 82570; 82607; 82728; 82803; 83540; 83550; 83735; 83935; 84100; 84300; 84484; 84540; 85025; 85045; 85610; 85730; 86850; 86900; 86901; 86922; 87086; 93005; 93010; 97116-GP; 97161-GP; 99285-25; G0378; P9058

== ENCOUNTER 2024-09-22 12:42 | Inpatient (IN) | payer OTHER ==
[2024-09-22 13:56] LABS: BASO % 0.5 % (0-2.0); EOS % 1.1 % (0-4.5); HEMATOCRIT 34.2 % (32.4-45.2); HEMOGLOBIN 11.3 GM/dL (10.7-15.3); LYMPH % 30.7 % (8-40); MCH 28.4 pg (25.7-33.7); MEAN CELL VOLUME 85.9 fl (80-96); MEAN PLT VOLUME 7.5 fl (7.5-11.1); MONO % 9.2 % (3.8-10.2); NEUT % 58.5 % (42.8-82.8); PLATELET COUNT 158 10^3/uL (134-434); RBC 3.98 M/mm3 (3.60-5.2); RDW 15.1 % (11.6-15.6); WHITE BLOOD COUNT 5.4 K/mm3 (4.0-10.0)
[2024-09-22 14:04] LABS: INR 1.16 (0.83-1.09); PROTHROMBIN TIME (PATIENT) 12.6 SEC (9.7-13.0)
[2024-09-22 14:20] LABS: POTASSIUM 5.3 mmol/L (3.5-5.1)
[2024-09-22 14:23] LABS: CALCIUM 9.5 mg/dL (8.5-10.1)
[2024-09-22 14:24] LABS: ALBUMIN 3.3 g/dl (3.4-5.0)
[2024-09-22 14:25] LABS: BLOOD UREA NITROGEN 29.8 mg/dL (7-18)
[2024-09-22 14:27] LABS: CREATININE 0.9 mg/dL (0.55-1.3)
[2024-09-22 14:29] LABS: TOT PROT 6.9 g/dl (6.4-8.2)
[2024-09-22 14:37] LABS: BILIRUBIN,TOTAL 0.5 mg/dL (0.2-1)
[2024-09-22] MEDS: SODIUM CHLORIDE 0.9% 500 ML INFUS.BAG IV ONE (15:39)
[2024-09-22] MEDS ORDERED: ACETAMINOPHEN INJECTION 100 ML ONE (19:12)
[2024-09-22] MEDS: ACETAMINOPHEN 1000 MG/100 ML BAG IVPB ONE (19:17)
[2024-09-22] MEDS ORDERED: ASPIRIN 81 MG CHEWABLE TABLETS ONE (20:16)
[2024-09-22] MEDS ORDERED: CLOPIDOGREL BISULFATE 75 MG TABLET (FP) ONE (20:16)
[2024-09-22] MEDS: ASPIRIN 81 MG CHEWABLE TABLETS PO SCH (20:20)
[2024-09-22] MEDS: CLOPIDOGREL BISULFATE 75 MG TABLET (FP) PO SCH (20:20)
[2024-09-23] MEDS: ACETAMINOPHEN 325 MG TABLET (FP) PO PRN (04:39)
[2024-09-23 09:13] LABS: HEMATOCRIT 32.9 % (32.4-45.2); HEMOGLOBIN 10.5 GM/dL (10.7-15.3); MCH 27.8 pg (25.7-33.7); MEAN CELL VOLUME 86.8 fl (80-96); MEAN PLT VOLUME 8.5 fl (7.5-11.1); PLATELET COUNT 118 10^3/uL (134-434); RBC 3.79 M/mm3 (3.60-5.2); RDW 15.4 % (11.6-15.6)
[2024-09-23 09:56] LABS: CALCIUM 9.6 mg/dL (8.5-10.1); MAGNESIUM 1.8 mg/dL (1.8-2.4)
[2024-09-23 09:57] LABS: BLOOD UREA NITROGEN 27.4 mg/dL (7-18); CREATININE 1.4 mg/dL (0.55-1.3)
[2024-09-23 09:59] LABS: TOT PROT 6.5 g/dl (6.4-8.2)
[2024-09-23 15:28] LABS: EPI CELLS 7 /uL (0-25.1); HYALINE CASTS 6 /uL (0-3.1); PH,URINE >= 9.0 (5.0-8.0); URINE APPEARANCE CLOUDY; URINE BACTERIA >9,000 /uL (0-1359); URINE BILIRUBIN NEGATIVE (NEGATIVE); URINE COLOR ORANGE; URINE GLUCOSE (UA) NEGATIVE (NEGATIVE); URINE KETONE NEGATIVE (NEGATIVE); URINE LEUK ESTERASE 3+ (NEGATIVE); URINE NITRITE POSITIVE (NEGATIVE); URINE PROTEIN 1+ (NEGATIVE); URINE RBC 425 /uL (0-23.9); URINE UROBILINOGEN 0.2 mg/dL (0.2-1.0); URINE WBC 739 /uL (0-25.8)
[2024-09-23] MEDS: ASPIRIN COATED 81 MG TABLET.EC PO SCH (15:28)
[2024-09-23] MEDS: SODIUM CHLORIDE 1,000 ML IV SCH (15:29)
[2024-09-23] MEDS: ACETAMINOPHEN 500 MG TABLET (FP) PO ONE (16:24)
[2024-09-23] MEDS: CEFTRIAXONE 1 G/50 ML PREMIX 50 ML IVPB ONE (19:51)
[2024-09-23] MEDS: HEPARIN NA (PORCINE) 5,000 UNITS/ML 1ML VIAL SQ SCH (21:58)
[2024-09-23] MEDS ORDERED: ATORVASTATIN CA 40 MG TABLET (FP) PO SCH (22:00)
[2024-09-23] MEDS: MELATONIN 5 MG TABLETS PO ONE (23:31)
[2024-09-24 08:44] LABS: HEMATOCRIT 28.4 % (32.4-45.2); HEMOGLOBIN 9.2 GM/dL (10.7-15.3); MCH 27.5 pg (25.7-33.7); MCHC 32.4 g/dl (32.0-36.0); MEAN CELL VOLUME 84.7 fl (80-96); MEAN PLT VOLUME 8.4 fl (7.5-11.1); PLATELET COUNT 101 10^3/uL (134-434); RBC 3.35 M/mm3 (3.60-5.2); RDW 15.8 % (11.6-15.6); WHITE BLOOD COUNT 18.7 K/mm3 (4.0-10.0)
[2024-09-24 09:06] LABS: POTASSIUM 4.2 mmol/L (3.5-5.1)
[2024-09-24 09:14] LABS: ALBUMIN 2.6 g/dl (3.4-5.0); BLOOD UREA NITROGEN 44.6 mg/dL (7-18); MAGNESIUM 1.7 mg/dL (1.8-2.4)
[2024-09-24 09:17] LABS: CREATININE 2.3 mg/dL (0.55-1.3)
[2024-09-24 09:19] LABS: BILIRUBIN,TOTAL 0.8 mg/dL (0.2-1)
[2024-09-24] MEDS: CEFTRIAXONE 1 G/50 ML PREMIX 50 ML IVPB SCH (10:41)
[2024-09-24 13:17] VITALS: BMI 22.4
[2024-09-24] MEDS: LACTATED RINGERS SOLUTION 1,000 ML/1,000 ML INFUS.BAG IV SCH (14:07)
[2024-09-24] MEDS: ACETAMINOPHEN/CAFFEINE/BUTALBITAL 1 TAB PO ONE (14:08)
[2024-09-24] MEDS: SODIUM CHLORIDE 500 ML IV STA (14:40)
[2024-09-24] MEDS: ATORVASTATIN CA 80 MG TABLET (FP) PO SCH (21:58)
[2024-09-25 08:33] LABS: HEMATOCRIT 29.8 % (32.4-45.2); HEMOGLOBIN 9.5 GM/dL (10.7-15.3); MCH 27.5 pg (25.7-33.7); MEAN CELL VOLUME 85.8 fl (80-96); MEAN PLT VOLUME 9.5 fl (7.5-11.1); PLATELET COUNT 74 10^3/uL (134-434); RBC 3.48 M/mm3 (3.60-5.2); RDW 15.7 % (11.6-15.6); WHITE BLOOD COUNT 21.7 K/mm3 (4.0-10.0)
[2024-09-25 08:47] LABS: CHLORIDE 111 mmol/L (98-107); POTASSIUM 3.7 mmol/L (3.5-5.1); SODIUM 141 mmol/L (136-145)
[2024-09-25 08:50] LABS: CALCIUM 8.7 mg/dL (8.5-10.1)
[2024-09-25 08:51] LABS: ALBUMIN 2.3 g/dl (3.4-5.0); ANION GAP 8 mmol/L (4-13); BLOOD UREA NITROGEN 47.5 mg/dL (7-18); CO2 22 mmol/L (21-32); MAGNESIUM 1.9 mg/dL (1.8-2.4)
[2024-09-25 08:52] LABS: GLUCOSE,RANDOM 44 mg/dL (74-106)
[2024-09-25 08:54] LABS: CREATININE 1.8 mg/dL (0.55-1.3); SGOT/AST 20 U/L (15-37); SGPT/ALT 12 U/L (13-61)
[2024-09-25 08:55] LABS: BILIRUBIN,TOTAL 0.5 mg/dL (0.2-1); TOT PROT 5.4 g/dl (6.4-8.2)
[2024-09-25 08:57] LABS: ALK PHOS 70 U/L (45-117)
[2024-09-25 16:52] LABS: EPI CELLS >36 /uL (0-25.1); HYALINE CASTS 17 /uL (0-3.1); URINE APPEARANCE TURBID; URINE BACTERIA 2075 /uL (0-1359); URINE BILIRUBIN NEGATIVE (NEGATIVE); URINE COLOR RED; URINE GLUCOSE (UA) NEGATIVE (NEGATIVE); URINE KETONE NEGATIVE (NEGATIVE); URINE LEUK ESTERASE 3+ (NEGATIVE); URINE NITRITE NEGATIVE (NEGATIVE); URINE PROTEIN 3+ (NEGATIVE); URINE UROBILINOGEN 0.2 mg/dL (0.2-1.0)
[2024-09-26 08:38] LABS: POTASSIUM 3.5 mmol/L (3.5-5.1)
[2024-09-26 08:44] LABS: ALBUMIN 2.1 g/dl (3.4-5.0); CALCIUM 8.7 mg/dL (8.5-10.1)
[2024-09-26 08:45] LABS: BLOOD UREA NITROGEN 34.2 mg/dL (7-18); MAGNESIUM 1.9 mg/dL (1.8-2.4)
[2024-09-26 08:48] LABS: CREATININE 1.1 mg/dL (0.55-1.3)
[2024-09-26 08:49] LABS: BILIRUBIN,TOTAL 0.5 mg/dL (0.2-1); TOT PROT 5.2 g/dl (6.4-8.2)
[2024-09-26 08:59] LABS: HEMATOCRIT 28.9 % (34.1-44.9); HEMOGLOBIN 9.2 g/dL (11.2-15.7); MCHC 31.8 g/dl (32.2-35.5); MEAN CELL VOLUME 86.8 fl (79.4-94.8); MEAN PLT VOLUME 12.3 fl (9.4-12.3); PLATELET COUNT # 49 x10^3/uL (182-369); RDW 15.1 % (12.5-17.0)
[2024-09-26] MEDS: CEFTRIAXONE 1 G/50 ML PREMIX 50 ML IVPB SCH (09:33)
[2024-09-26] MEDS: SODIUM CHLORIDE 1,000 ML IV SCH (22:26)
[2024-09-27 07:47] LABS: HEMATOCRIT 28.9 % (34.1-44.9); HEMOGLOBIN 9.1 g/dL (11.2-15.7); MCHC 31.5 g/dl (32.2-35.5); MEAN CELL VOLUME 86.3 fl (79.4-94.8); MEAN PLT VOLUME 11.6 fl (9.4-12.3); PLATELET COUNT # 47 x10^3/uL (182-369)
[2024-09-27 08:02] LABS: CALCIUM 8.8 mg/dL (8.5-10.1)
[2024-09-27 08:03] LABS: BLOOD UREA NITROGEN 29.7 mg/dL (7-18); MAGNESIUM 1.9 mg/dL (1.8-2.4); POTASSIUM 3.8 mmol/L (3.5-5.1)
[2024-09-27 08:08] LABS: BILIRUBIN,TOTAL 0.4 mg/dL (0.2-1); TOT PROT 5.1 g/dl (6.4-8.2)
[2024-09-27] MEDS ORDERED: MIDAZOLAM HCL 2 MG/2 ML SINGLE DOSE VIAL ONE (11:04)
[2024-09-27] MEDS ORDERED: PROPOFOL 20 ML ONE (11:04)
[2024-09-27] MEDS ORDERED: ONDANSETRON 4 MG/2 ML VIAL ONE (12:28)
[2024-09-27] MEDS ORDERED: DEXAMETHASONE SOD PHOSPHATE 4 MG/1 ML VIAL ONE (12:28)
[2024-09-27] MEDS: SODIUM CHLORIDE 1,000 ML IV SCH (13:58)
[2024-09-27] MEDS: LACTATED RINGERS SOLUTION 1,000 ML IV SCH (14:42)
[2024-09-27] MEDS: PIPERACILLIN/TAZOB 3.375 GM 50 ML IVPB SCH (17:09)
[2024-09-27] MEDS: ATORVASTATIN CA 80 MG TABLET (FP) PO SCH (21:14)
[2024-09-28 06:50] LABS: ABSOLUTE IMMATURE GRANULOCYTES 0.28 x10^3/uL (0.0-0.031); BASOPHILS # 0.02 x10^3/uL (0.01-0.08); EOSINOPHIL % 0.2 % (0.7-5.8); EOSINOPHILS # 0.02 x10^3/uL (0.04-0.36); HEMATOCRIT 31.2 % (34.1-44.9); HEMOGLOBIN 9.7 g/dL (11.2-15.7); MCHC 31.1 g/dl (32.2-35.5); MEAN CELL VOLUME 86.2 fl (79.4-94.8); MEAN PLT VOLUME 11.9 fl (9.4-12.3); MONOCYTE # 1.83 x10^3/uL (0.24-0.86); MONOCYTE % 16.1 % (4.7-12.5); PLATELET COUNT # 64 x10^3/uL (182-369); RDW 15.2 % (12.5-17.0)
[2024-09-28 07:11] LABS: CALCIUM 8.5 mg/dL (8.5-10.1)
[2024-09-28 07:12] LABS: ALBUMIN 2.2 g/dl (3.4-5.0); BLOOD UREA NITROGEN 23.3 mg/dL (7-18); MAGNESIUM 1.9 mg/dL (1.8-2.4)
[2024-09-28 07:17] LABS: BILIRUBIN,TOTAL 0.4 mg/dL (0.2-1); TOT PROT 5.4 g/dl (6.4-8.2)
[2024-09-28] MEDS: HEPARIN NA (PORCINE) 5,000 UNITS/ML 1ML VIAL SQ SCH (21:31)
[2024-09-29 09:07] LABS: HEMATOCRIT 32.3 % (34.1-44.9); MEAN CELL VOLUME 87.1 fl (79.4-94.8); MEAN PLT VOLUME 12.1 fl (9.4-12.3); PLATELET COUNT # 107 x10^3/uL (182-369); RDW 15.1 % (12.5-17.0)
[2024-09-29 09:37] LABS: POTASSIUM 4.1 mmol/L (3.5-5.1)
[2024-09-29 10:33] LABS: BILIRUBIN,TOTAL 0.4 mg/dL (0.2-1); TOT PROT 5.4 g/dl (6.4-8.2)
[2024-09-29 10:34] LABS: ALBUMIN 2.2 g/dl (3.4-5.0); BLOOD UREA NITROGEN 19.3 mg/dL (7-18); CALCIUM 8.6 mg/dL (8.5-10.1); CREATININE 0.8 mg/dL (0.55-1.3); MAGNESIUM 1.8 mg/dL (1.8-2.4)
[2024-09-29] MEDS: ACETAMINOPHEN 325 MG TABLET (FP) PO PRN (22:13)
[2024-09-30 08:41] LABS: HEMATOCRIT 29.2 % (34.1-44.9); HEMOGLOBIN 9.1 g/dL (11.2-15.7); MCHC 31.2 g/dl (32.2-35.5); MEAN CELL VOLUME 87.2 fl (79.4-94.8); MEAN PLT VOLUME 11.9 fl (9.4-12.3); PLATELET COUNT # 137 x10^3/uL (182-369); RDW 15.3 % (12.5-17.0)
[2024-09-30 08:49] LABS: POTASSIUM 4.1 mmol/L (3.5-5.1)
[2024-09-30 09:00] LABS: ALBUMIN 1.9 g/dl (3.4-5.0); BLOOD UREA NITROGEN 20.5 mg/dL (7-18); CALCIUM 8.5 mg/dL (8.5-10.1); MAGNESIUM 1.7 mg/dL (1.8-2.4)
[2024-09-30 09:04] LABS: CREATININE 0.8 mg/dL (0.55-1.3)
[2024-09-30 09:05] LABS: BILIRUBIN,TOTAL 0.4 mg/dL (0.2-1); TOT PROT 4.9 g/dl (6.4-8.2)
[2024-10-01 06:40] LABS: ABSOLUTE IMMATURE GRANULOCYTES 0.69 x10^3/uL (0.0-0.031); BASOPHILS # 0.05 x10^3/uL (0.01-0.08); EOSINOPHIL % 1.3 % (0.7-5.8); EOSINOPHILS # 0.19 x10^3/uL (0.04-0.36); HEMATOCRIT 29.1 % (34.1-44.9); HEMOGLOBIN 9.1 g/dL (11.2-15.7); MCHC 31.3 g/dl (32.2-35.5); MEAN CELL VOLUME 86.4 fl (79.4-94.8); MEAN PLT VOLUME 10.9 fl (9.4-12.3); MONOCYTE # 0.91 x10^3/uL (0.24-0.86); MONOCYTE % 6.2 % (4.7-12.5); PLATELET COUNT # 169 x10^3/uL (182-369)
[2024-10-01 13:04] VITALS: RESP 18
[2024-10-02 13:51] LABS: HEMATOCRIT 34.2 % (34.1-44.9); HEMOGLOBIN 10.6 g/dL (11.2-15.7); MEAN CELL VOLUME 87.7 fl (79.4-94.8); MEAN PLT VOLUME 11.5 fl (9.4-12.3); PLATELET COUNT # 246 x10^3/uL (182-369); RDW 15.1 % (12.5-17.0)
[2024-10-03 01:35] VITALS: BP 106/67; PULSE 88; TEMP 98.1
[2024-10-05 17:06] LABS: SIZE 5x4 mm (.); WEIGHT 27 mg (.)
== END 2024-10-03 01:30 | DRG 854 ==
LOC: JER 12:42 → JERBED 17:21 → J4S 21:17 → OBSVTOIN 09-23 14:00
PROVIDERS: ADMIT Student in an Organized Health Care Education/Training Program; ATTEND Physician Assistant
PROC: BT14ZZZ Fluoroscopy of Kidneys, Ureters and Bladder (ICD-10-PCS; 2024-09-27)
PROC: 0T788DZ Dilation of Bilateral Ureters with Intraluminal Device, Via Natural or Artificial Opening Endoscopic (ICD-10-PCS; principal; 2024-09-27 16:00)
PROC: 0TP98DZ Removal of Intraluminal Device from Ureter, Via Natural or Artificial Opening Endoscopic (ICD-10-PCS; 2024-09-27 16:00)
PROC: 0TC68ZZ Extirpation of Matter from Right Ureter, Via Natural or Artificial Opening Endoscopic (ICD-10-PCS; 2024-09-27 16:00)
DX: A41.9 Sepsis, unspecified organism (principal); I69.351 Hemiplegia and hemiparesis following cerebral infarction affecting right dominant side; N13.6 Pyonephrosis; N17.9 Acute kidney failure, unspecified; N20.1 Calculus of ureter; I10 Essential (primary) hypertension; D64.9 Anemia, unspecified; D69.6 Thrombocytopenia, unspecified
CPT/HCPCS: 0241U-QW; 36415; 70450-TC; 70496-TC; 70498-TC; 70551-TC; 71045-TC-FY; 73090-TC-LT-FY; 74176-TC; 76000-TC-FY; 76775-TC; 80053; 80061; 81003; 82360; 82550; 82962; 83036; 83735; 84484; 85025; 85027; 85610; 85730; 86850; 86900; 86901; 87040; 87086; 87186; 88300-TC; 93005; 93010; 93306-TC; 94760; 97116-GP; 97161-GP; 99285-25; C2617; G0378; J0131; J1644